=== PATIENT | male | born 1955 | race Caucasian/White ===

== ENCOUNTER 2017-04-02 09:10 | Emergency (ER) | payer BC ==
[2017-04-02 09:16] VITALS: BP 119/85
--- NOTE | 2017-04-02 10:26 | UC ---
Martin Fernandez Angela, scribed for Jonathan Lopez MD on 04/02/17 at 0937 . Skin Complaint HPI - HPI Summary HPI Summary: This pt is a 61 y/o male presenting to [facility] c/o a bug bite on his right upper thigh x3 weeks, not painful. Pt notes he has a fever and chills 1 weeks ago. He denies drainage, nausea, fatigue, joint pain. Pt is unsure if he was bit by a bug. Pt works in construction outside. - History of Current Complaint Chief Complaint: UCSkin Time Seen by Provider: 04/02/17 09:27 Stated Complaint: SKIN ISSUE Hx Obtained From: Patient Onset/Duration: Lasting Weeks Skin Exposure Onset/Duration: Weeks Ago Location: Discrete - Right upper thigh Character: Pruritus - mildly, Redness Aggravating: Nothing Alleviating: Nothing Associated Signs & Symptoms: Positive: Fever - 1 week ago, now resolved, Chills - 1 week ago, now resolved. Negative: Nausea, Vomiting - Allergy/Home Medications Allergies/Adverse Reactions: Allergies Allergy/AdvReac Type Severity Reaction Status Date / Time No Known Allergies Allergy Verified 05/28/15 10:49 Review of Systems Constitutional: Fever - 1 week ago, now resolved., Chills - 1 week ago, now resolved. Skin: Rash Eyes: Negative ENT: Negative Respiratory: Negative Cardiovascular: Negative Gastrointestinal: Negative Genitourinary: Negative Motor: Negative Neurovascular: Negative Musculoskeletal: Negative Neurological: Negative All Other Systems Reviewed And Are Negative: Yes PMH/Surg Hx/FS Hx/Imm Hx Previously Healthy: Yes - Surgical History Surgical History: Yes Surgery Procedure, Year, and Place: HERNIA - AN INFANT - Social History Alcohol Use: Daily Substance Use Type: None Smoking Status (MU): Never Smoked Tobacco Physical Exam Triage Information Reviewed: Yes Vital Signs: Initial Vital Signs Temp 97 F 04/02/17 09:11 Pulse 77 04/02/17 09:11 Resp 16 04/02/17 09:11 BP 119/85 04/02/17 09:11 Pulse Ox 100 04/02/17 09:11 Vital Signs Reviewed: Yes - Additional Comments The patient is well-nourished in no acute distress and in no acute pain. The skin is warm and dry and skin color reflects adequate perfusion. PT has a bulls eye type of rash in his upper right thigh, dark in the center, clear on the outside. It appears there was a vesicle in the middle that is no longer present. It is not fluctuant, not tender, and it is flat. It is consistent with erythema migrans. HEENT: The head is normocephalic and atraumatic. The pupils are equal and reactive. The conjunctivae are clear and without drainage. Neck is supple with full range of motion and non-tender. There are no carotid bruits. There is no neck vein distension. Respiratory: Chest is non-tender. Lungs are clear to auscultation and breath sounds are symmetrical and equal. Cardiovascular: Hear is regular rate and rhythm. There is no murmur or rub auscultated. Musculoskeletal: There is no back pain noted. Extremities are non-tender with full range of motion. Neurological: Patient is alert and oriented to person, place and time. The patient has symmetrical motor strength in all four extremities. Psychiatric: The patient has an appropriate affect and does not exhibit any anxiety or depression. Course/Dx - Differential Diagnoses - Skin Complaint Differential Diagnoses: Tick Born Illness, Tinea - Diagnoses Provider Diagnoses: Erythema migrans. Lyme disease Discharge - Discharge Plan Condition: Stable Disposition: HOME Prescriptions: DOXYcycline CAP(*) [DOXYcycline 100MG CAP(*)] 100 mg PO BID #42 cap Patient Education Materials: Lyme Disease (ED) Referrals: Idris Holloway MD [Primary Care Provider] - Additional Instructions: Please follow up with your primary care physician to assure your symptoms are improving. The documentation as recorded by the Martin raymundo Angela accurately reflects the service I personally performed and the decisions made by , Jonathan Lopez MD.
== END 2017-04-02 09:46 | disposition home or self-care (01) ==
LOC: UCEAST 09:10
DX: A69.20 Lyme disease, unspecified (principal)
CPT/HCPCS: 99212; G0463

== ENCOUNTER 2018-05-25 10:20 | Emergency (ER) | payer BC ==
[2018-05-25] MEDS ORDERED: Tetan/Diph/Pertus SYR(Tdap)* 0.5 ML SYR(BOOSTRIX) use SYR IM ONE (10:52)
--- NOTE | 2018-05-25 10:55 | UC ---
Laceration HPI - HPI Summary HPI Summary: 62 yo male presents with laceration to LEFT 4th digit. He tells me that [employer] he was using a saw at work and it slipped and cut his finger. He bandaged the area and came to . He is unsure the date of his last tetanus. - History Of Current Complaint Chief Complaint: UCRespiratory Stated Complaint: FINGER LAC Time Seen by Provider: 05/25/18 10:55 Hx Obtained From: Patient Laceration Location: Finger Mechanism Of Injury: Sharp Trauma Onset/Duration: Sudden Onset Severity: Moderate Pain Intensity: 5 Pain Scale Used: 0-10 Numeric - Allergies/Home Medications Allergies/Adverse Reactions: Allergies Allergy/AdvReac Type Severity Reaction Status Date / Time No Known Allergies Allergy Verified 05/25/18 10:35 PMH/Surg Hx/FS Hx/Imm Hx - Additional Past Medical History Additional PMH: None - Surgical History Surgical History: Yes Surgery Procedure, Year, and Place: HERNIA - AN INFANT - Family History Known Family History: Positive: None - Social History Occupation: Employed Full-time Lives: With Family Alcohol Use: Daily Substance Use Type: None Smoking Status (MU): Never Smoked Tobacco Review of Systems Constitutional: Negative Skin: Other - Laceration left 4th digit Respiratory: Negative Cardiovascular: Negative Neurovascular: Negative Neurological: Negative Psychological: Negative All Other Systems Reviewed And Are Negative: Yes Physical Exam - Summary Physical Exam Summary: GENERAL: NAD. WDWN. No pain distress. SKIN: Left 4th digit: Deep laceration beginning at the volar finger pad and extending through the tuft just below the nail on the other side. Distal tip attached by surrounding nail-skin fold, but is acting like a flap. CHEST: No accessory muscle use. Breathing comfortably and in no distress. CV: Pulses intact. Cap refill <2seconds MSK: Distal tuft left 4th digit with open fracture. NEURO: Alert. PSYCH: Age appropriate behavior. Triage Information Reviewed: Yes Vital Signs: Initial Vital Signs Temp 97.6 F 05/25/18 10:32 Pulse 117 05/25/18 10:32 Resp 18 05/25/18 10:32 BP 129/89 05/25/18 10:32 Pulse Ox 98 05/25/18 10:32 Vital Signs Reviewed: Yes Laceration Repair - Laceration Repair 1 Description: Linear Laceration Size After Repair: Length (cm) - 1.0 Modified For Repair: Yes Anesthesia Used: 2.0% Lido Cleansing Completed Via Routine Prep: Yes Irrigation With Pressure Irrigation Device: Yes Closure Material: Sutures - 9 Closure Method: Single Layer Suture Of: Skin Suture Type: Prolene - 5-0 Laceration Course/Dx - Course/Dx Course Of Treatment: XR: IMPRESSION: COMMINUTED FRACTURE THROUGH THE TUFT OF THE DISTAL PHALANX OF THE FOURTH DIGIT. The procedure was explained to the pt and all questions were answered. A time out was performed, witnessed, and signed. The area was irrigated with 1L sterile saline. 4mL of 2% lidocaine without epi was administered as a digital block and good anesthetization was achieved. In the usual sterile fashion, NINE 5-0 prolene interrupted sutures were placed. The wound was bandaged with xeroform, telfa, and tubegauze. Pt tolerated procedure well. Results of the XR were discussed and pt was given 1gm of Ceftriaxone as this is considered an open fracture. Advised to f/u with Orthopedics as soon as possible. - Differential Dx - Laceration/Wound Provider Diagnoses: OPEN COMMINUTED FRACTURE THROUGH THE TUFT OF THE DISTAL PHALANX OF THE FOURTH DIGIT Discharge - Sign-Out/Discharge Documenting (check all that apply): Patient Departure All imaging exams completed and their final reports reviewed: Yes - Discharge Plan Condition: Stable Disposition: HOME Prescriptions: Cephalexin CAP* [Keflex CAP*] 500 mg PO TID #21 cap Patient Education Materials: Care For Your Stitches (DC), Laceration (DC), Finger Fracture (ED) Referrals: Idris Holloway MD [Primary Care Provider] - Ponce Dumont MD [Medical Doctor] - As Soon As Possible Additional Instructions: If you develop a fever, shortness of breath, chest pain, new or worsening symptoms - please call your PCP or go to the ED. Your blood pressure was high at todays visit. Please see your primary provider within 4 weeks for recheck and re-evaluation. 1) Please keep the area bandaged, clean, dry, and intact until your appointment with Orthopedics 2) If you develop a fever, colored or thick discharge, increased pain or swelling - please call your PCP or go to the ED. 3) Please have Orthopedics direct you when to have your sutures removed (likely around 10-14 days) - Billing Disposition and Condition Condition: STABLE Disposition: Home
[2018-05-25] MEDS ORDERED: Lidocaine 2% PF * 5 ML VIAL INJ ONE (10:58)
[2018-05-25] MEDS ORDERED: cefTRIAXone VIAL(*) 1,000 MG VIAL IM ONE (11:12)
--- NOTE | 2018-05-25 11:26 | RAD ---
HISTORY: Lac, ring finger injury, penetrating trauma COMPARISONS: None VIEWS: 3 , Frontal, lateral, and oblique views of the fourth digit of the left hand. Evaluation of the proximal phalanx is limited by metallic jewelry. FINDINGS: BONE DENSITY: Normal. BONES: There is a comminuted fracture of the tuft of the distal phalanx of the fourth digit JOINTS: There is no arthropathy. ALIGNMENT: There is no dislocation. SOFT TISSUES: There is soft tissue irregularity consistent with history of laceration OTHER FINDINGS: None. IMPRESSION: COMMINUTED FRACTURE THROUGH THE TUFT OF THE DISTAL PHALANX OF THE FOURTH DIGIT
[2018-05-25] MEDS ORDERED: Lidocaine 1%* 5 ML VIAL INJ ONE (11:43)
[2018-05-25 13:09] VITALS: BP 148/89
== END 2018-05-25 12:40 | disposition home or self-care (01) ==
LOC: UCEAST 10:20
DX: S62.665B Nondisplaced fracture of distal phalanx of left ring finger, initial encounter for open fracture (principal); W31.2XXA Contact with powered woodworking and forming machines, initial encounter; Y93.H3 Activity, building and construction; Y92.9 Unspecified place or not applicable; Y99.0 Civilian activity done for income or pay
CPT/HCPCS: 12001; 73140; 90715; 99212; G0463; J0696